=== PATIENT | male | born 1985 | race Caucasian/White ===

== ENCOUNTER 2016-12-27 20:01 | Emergency (ER) | payer SELFPAY ==
[~2016-12-27] VITALS: Ht 167.6 cm; Wt 78.5 kg
[~2016-12-27 20:01] MED LIST: NOHOMEMEDS
[2016-12-27] MEDS ORDERED: NAPROXEN500 MG PO (20:56)
[2016-12-27 21:23] VITALS: BP 110/89
== END 2016-12-27 21:24 | disposition home or self-care (01) ==
LOC: EME 20:01 → EXP 20:01
PROC: 2W3EX1Z Immobilization of Right Hand using Splint (ICD-10-PCS; principal; 2016-12-27)
DX: S63.91XA Sprain of unspecified part of right wrist and hand, initial encounter (principal); W22.8XXA Striking against or struck by other objects, initial encounter; F17.200 Nicotine dependence, unspecified, uncomplicated
CPT/HCPCS: 73130; 99281; 99284

== ENCOUNTER 2017-05-29 22:16 | Emergency (ER) | payer SELFPAY ==
[~2017-05-29] VITALS: Ht 167.6 cm; Wt 78.8 kg
[~2017-05-29 22:16] MED LIST changes: +NAPROXEN500 MG PO
[2017-05-29] MEDS ORDERED: PEN-VEE K,VEET500 MG PO (23:45)
[2017-05-29] MEDS ORDERED: TRAMADOL HCL50 MG PO (23:45)
[2017-05-29 23:53] VITALS: BP 142/74
== END 2017-05-29 23:55 | disposition home or self-care (01) ==
LOC: EME 22:16
DX: K08.89 Other specified disorders of teeth and supporting structures (principal); K02.9 Dental caries, unspecified; F17.200 Nicotine dependence, unspecified, uncomplicated
CPT/HCPCS: 99281; 99284